=== PATIENT | male | born 1940 | race Two or more races ===

== ENCOUNTER → 2020-03-17 | Outpatient (CLI) | payer MEDICARE ==
[~2020-03-17] MED LIST: ATOR40TA78 PO; CELE200C PO; DAPA10TA PO; FINA5TAB4 PO; GLIP10TA24 PO; LISI40TA PO; METF10002 PO; OXYC-302 PO; SENN-25 PO; TAMS-11 PO; TAMS0.4C2 PO; TRAM50TA2 PO; VISIPAQUE 320 MG/ML, 150ML BOTTLE ONE; celexa PO; toujeo SC
== END | disposition home or self-care (01) ==
LOC: RAD 11:01
PROVIDERS: ATTEND Internal Medicine Cardiovascular Disease
DX: N28.1 Cyst of kidney, acquired (principal); N40.0 Benign prostatic hyperplasia without lower urinary tract symptoms; J43.9 Emphysema, unspecified; I70.0 Atherosclerosis of aorta; N32.89 Other specified disorders of bladder; I70.1 Atherosclerosis of renal artery
CPT/HCPCS: 71275; 74174; Q9967

== ENCOUNTER → 2020-05-03 | Outpatient (CLI) | payer MEDICARE, OTHER ==
[~2020-05-03] MED LIST changes: +ASPI81TA45 PO; +CLOP75TA PO; -VISIPAQUE 320 MG/ML, 150ML BOTTLE ONE
== END | disposition home or self-care (01) ==
LOC: CFH 10:20
PROVIDERS: ATTEND Internal Medicine Cardiovascular Disease
DX: I34.0 Nonrheumatic mitral (valve) insufficiency (principal); R06.02 Shortness of breath; I65.29 Occlusion and stenosis of unspecified carotid artery
CPT/HCPCS: 93306

== ENCOUNTER → 2020-11-07 | Outpatient (CLI) | payer MEDICARE, OTHER | END | disposition home or self-care (01) | LOC: CVU 09:30 | PROVIDERS: ATTEND Internal Medicine Cardiovascular Disease | DX: I65.23 Occlusion and stenosis of bilateral carotid arteries (principal); R42 Dizziness and giddiness; I73.9 Peripheral vascular disease, unspecified | CPT/HCPCS: 93880 ==

== ENCOUNTER → 2021-03-13 | Outpatient (CLI) | payer MEDICARE, OTHER ==
[~2021-03-13] MED LIST changes: -LISI40TA PO; +LISI40TA9 PO; -OXYC-302 PO; +OXYC1TAB14 PO
== END | disposition home or self-care (01) ==
LOC: CVU 09:31
PROVIDERS: ATTEND Internal Medicine Cardiovascular Disease
DX: I08.1 Rheumatic disorders of both mitral and tricuspid valves (principal); I50.30 Unspecified diastolic (congestive) heart failure
CPT/HCPCS: 93306

== ENCOUNTER 2021-05-11 19:51 | Inpatient (IN) | payer MEDICARE, OTHER ==
[~2021-05-11] VITALS: Ht 152.4 cm; Wt 57.4 kg
[2021-05-11] MEDS ORDERED: AMPICILLIN/SULBACTAM 3 GM in SODIUM CHLORIDE 0.9% 100 ML IV ONE (23:00)
[2021-05-11] MEDS ORDERED: ONDANSETRON 2MG/ML, 2ML IVPush ONE (23:00)
[2021-05-11] MEDS ORDERED: SODIUM CHLORIDE FLUSH 10ML SYR IVF ONE (23:00)
[2021-05-11] MEDS ORDERED: VANCOMYCIN PER PHARMACY MC ONE (23:00)
[2021-05-11] MEDS ORDERED: MORPHINE SULFATE 4 MG/ML, 1ML IVPush PRN (23:00)
[2021-05-11] MEDS ORDERED: SODIUM CHLORIDE 0.9% 1,000ML IVBOLUS ONE (23:00)
[2021-05-11] MEDS ORDERED: PHARMACOKINETIC CONSULTATION MC ONE (23:00)
[2021-05-11 23:18] LABS: BASOPHILS % (AUTO) 1 % (0-1); EOSINOPHILS % (AUTO) 5 % (1-7); LYMPHOCYTES % (AUTO) 14 % (22-44); MEAN CORPUSCULAR HEMOGLOBIN 31.1 pg (27.5-34.5); MEAN CORPUSCULAR HGB CONC 33.5 g/dL (33.2-36.2); MONOCYTES % (AUTO) 9 % (2-9); NEUTROPHILS % (AUTO) 72 % (42-75); PLATELET COUNT 309 x10^3/uL (130-400); RED BLOOD COUNT 3.68 x10^6/uL (4.38-5.82); RED CELL DISTRIBUTION WIDTH 15.3 % (9.4-14.8)
[2021-05-11 23:19] LABS: HCT (SEDRATE) 34.8 % (39.2-51.8)
[2021-05-11 23:29] LABS: ALANINE AMINOTRANSFERASE 34 U/L (12-78); CALCIUM 8.8 mg/dL (8.5-10.1); CHLORIDE 101 mmol/L (98-107); CREATININE 1.46 mg/dL (0.7-1.3)
[2021-05-11] MEDS ORDERED: VANCOMYCIN 1,600 MG in SODIUM CHLORIDE 0.9% 250 ML IV ONE (23:30)
[2021-05-11 23:32] LABS: ALBUMIN 3.3 g/dL (3.4-5.0); ALKALINE PHOSPHATASE 125 U/L (45-117); ANION GAP 11 mmol/L (5-15); BILIRUBIN,TOTAL 0.3 mg/dL (0.2-1.0)
--- NOTE | 2021-05-11 23:41 | NUR ---
PT REPORTS LAST NOVEMBER HAVING A BURN ON THAT MIDDLE FINGER. FAMILY REPORTS PT WAS SEEING PCP WHO WANTED HIM TO FOLLOW UP WITH THE [facility] WHO REFUSED TO SEE PT DUE TO SCAB ON FINGER TIP. PT THEN HAD WOUND HEALING OKAY UNTIL A WEEK PRIOR WHEN THE WOUN DWAS SIGNIFICANTLY REDDENED. THEN TODAY WHEN THE FAMILY SAW THAT THE FINGER TIP IS BLACKENED AND APPEARS TO BE NECROTIC TISSUE, PCP RECOMMENDED PT COME INTO ED TONIGHT. PT HAD HX OF DM. PT TO BE ADMITTED. NAD. Patient is resting comfortably in bed. Bed in lowest, rails engaged, call light on lap. Vital Signs within normal limits. WCTM.
[2021-05-12] MEDS ORDERED: ONDANSETRON 2MG/ML, 2ML IV PRN (00:30)
[2021-05-12] MEDS ORDERED: POLYETHYLENE GLYCOL 17 GM PACKET PO PRN (00:30)
[2021-05-12] MEDS ORDERED: MELATONIN 5 MG TABLET PO PRN (00:30)
[2021-05-12] MEDS ORDERED: PHARMACY MAY ADJ FOR RENAL FX MC SCH (00:30)
[2021-05-12] MEDS ORDERED: ACETAMINOPHEN 325 MG TABLET PO PRN (00:30)
[2021-05-12] MEDS ORDERED: VANCOMYCIN PER PHARMACY MC PRN (00:30)
[2021-05-12] MEDS ORDERED: HYDROmorphone 2 MG/ML, 1ML IV PRN (00:30)
[2021-05-12 01:38] VITALS: BP 145/59
[2021-05-12] MEDS: HYDROcodone/APAP 5/325 TABLET PO PRN ×3 (01:38→20:34)
[2021-05-12] MEDS ORDERED: PHARMACOKINETIC MONITORING MC PRN (02:00)
[2021-05-12] MEDS ORDERED: CEFEPIME 2 GM in DEXTROSE 5% 100 ML IV SCH (02:30)
[2021-05-12] MEDS: LACTATED RINGERS 1,000 ML IV SCH ×2 (02:49→11:19)
[2021-05-12] MEDS: INSULIN REGULAR 100 UNITS/ML, 3ML VIAL SQ-INSULIN SCH ×5 (03:03→20:18)
[2021-05-12 03:15] LABS: ANION GAP 8 mmol/L (5-15); CALCIUM 7.8 mg/dL (8.5-10.1); CHLORIDE 107 mmol/L (98-107); CREATININE 1.31 mg/dL (0.7-1.3)
[2021-05-12 03:21] LABS: BASOPHILS % (AUTO) 1 % (0-1); EOSINOPHILS % (AUTO) 6 % (1-7); LYMPHOCYTES % (AUTO) 14 % (22-44); MEAN CORPUSCULAR HEMOGLOBIN 31.1 pg (27.5-34.5); MEAN CORPUSCULAR HGB CONC 33.6 g/dL (33.2-36.2); MONOCYTES % (AUTO) 9 % (2-9); NEUTROPHILS % (AUTO) 70 % (42-75); PLATELET COUNT 264 x10^3/uL (130-400); RED BLOOD COUNT 3.16 x10^6/uL (4.38-5.82); RED CELL DISTRIBUTION WIDTH 14.9 % (9.4-14.8)
[2021-05-12 07:06] VITALS: BP 131/66
[2021-05-12 12:03] VITALS: BP 117/68
[2021-05-12] MEDS: CEFEPIME 2 GM in DEXTROSE 5% 100 ML IV SCH (16:34)
[2021-05-12] MEDS: VANCOMYCIN 1,200 MG in SODIUM CHLORIDE 0.9% 250 ML IV SCH (18:18)
[2021-05-12 19:33] VITALS: BP 103/63
[2021-05-13] MEDS: LACTATED RINGERS 1,000 ML IV SCH (01:09)
[2021-05-13 01:10] VITALS: BP 126/62
[2021-05-13] MEDS: CEFEPIME 2 GM in DEXTROSE 5% 100 ML IV SCH ×2 (03:57→16:20)
[2021-05-13 06:20] LABS: BASOPHILS % (AUTO) 1 % (0-1); EOSINOPHILS % (AUTO) 5 % (1-7); LYMPHOCYTES % (AUTO) 13 % (22-44); MEAN CORPUSCULAR HEMOGLOBIN 30.8 pg (27.5-34.5); MEAN CORPUSCULAR HGB CONC 33.7 g/dL (33.2-36.2); MEAN PLATELET VOLUME 7.9 fL (7.4-10.4); MONOCYTES % (AUTO) 9 % (2-9); NEUTROPHILS % (AUTO) 72 % (42-75); PLATELET COUNT 266 x10^3/uL (130-400); RED BLOOD COUNT 3.15 x10^6/uL (4.38-5.82); RED CELL DISTRIBUTION WIDTH 15.2 % (9.4-14.8)
[2021-05-13 06:30] LABS: ANION GAP 6 mmol/L (5-15); CALCIUM 8.6 mg/dL (8.5-10.1); CHLORIDE 111 mmol/L (98-107); CREATININE 0.97 mg/dL (0.7-1.3)
[2021-05-13 07:14] VITALS: BP 124/59
[2021-05-13] MEDS: INSULIN REGULAR 100 UNITS/ML, 3ML VIAL SQ-INSULIN SCH ×4 (07:15→20:22)
[2021-05-13] MEDS: HYDROcodone/APAP 5/325 TABLET PO PRN ×2 (08:28→20:40)
[2021-05-13] MEDS: FINASTERIDE 5 MG TABLET PO SCH (11:30)
[2021-05-13] MEDS: VANCOMYCIN 1,200 MG in SODIUM CHLORIDE 0.9% 250 ML IV SCH (11:42)
[2021-05-13] MEDS: TAMSULOSIN 0.4 MG CAP.ER.24H PO SCH (11:42)
[2021-05-13 12:58] VITALS: BP 128/68
[2021-05-13 19:30] VITALS: BP 117/60
[2021-05-13] MEDS: ATORVASTATIN 40 MG TABLET PO SCH (20:40)
[2021-05-14] VITALS (12 sets, daily range): BP systolic 105–160; BP diastolic 59–79
[2021-05-14] MEDS: CEFEPIME 2 GM in DEXTROSE 5% 100 ML IV SCH ×3 (04:18→20:30)
[2021-05-14] MEDS: INSULIN REGULAR 100 UNITS/ML, 3ML VIAL SQ-INSULIN SCH ×4 (07:00→20:30)
[2021-05-14] MEDS: morphine SULFATE 10 MG/ML, 1ML IVPush PRN ×2 (11:24→12:08)
[2021-05-14] MEDS: VANCOMYCIN 1,200 MG in SODIUM CHLORIDE 0.9% 250 ML IV SCH (12:15)
[2021-05-14] MEDS ORDERED: FENTANYL PF 250 MCG/5ML ONE (15:10)
[2021-05-14] MEDS ORDERED: MIDAZOLAM 1 MG/ML, 2ML ONE (15:10)
[2021-05-14] MEDS ORDERED: SUCCINYLCHOLINE 20 MG/ML, 10ML ONE (15:18)
[2021-05-14] MEDS ORDERED: ROCURONIUM 10 MG/ML,10ML ONE (15:18)
[2021-05-14] MEDS ORDERED: CEFAZOLIN 1,000 MG ONE (15:18)
[2021-05-14] MEDS ORDERED: DEXAMETHASONE 4 MG/ML, 1ML ONE (15:18)
[2021-05-14] MEDS ORDERED: PROPOFOL 10 MG/ML, 20ML ONE (15:18)
[2021-05-14] MEDS ORDERED: ONDANSETRON 2MG/ML, 2ML ONE (15:18)
[2021-05-14] MEDS ORDERED: hydrALAzine 20 MG/ML, 1ML IV PRN ×2 (16:00)
[2021-05-14] MEDS ORDERED: MEPERIDINE/PF 25MG/0.5ML IVPush PRN ×2 (16:00)
[2021-05-14] MEDS ORDERED: KETOROLAC 30 MG/1 ML IV PRN ×2 (16:00)
[2021-05-14] MEDS ORDERED: OXYcodone 5 MG/5 ML ORAL.SOL UDC PO PRN (16:00)
[2021-05-14] MEDS ORDERED: PROMETHAZINE 25 MG/ML, 1ML IV PRN ×2 (16:00)
[2021-05-14] MEDS ORDERED: HYDROmorphone 1 MG/ML, 1ML INJ IV PRN ×2 (16:00)
[2021-05-14] MEDS ORDERED: ONDANSETRON 2MG/ML, 2ML IVPush PRN ×2 (16:00)
[2021-05-14] MEDS: ASPIRIN 81 MG TABLET EC PO SCH (16:00)
[2021-05-14] MEDS ORDERED: METOCLOPRAMIDE 5 MG/ML, 2ML IV PRN ×2 (16:00)
[2021-05-14] MEDS ORDERED: DIAZEPAM 5 MG/ML, 2ML IV PRN ×4 (16:00)
[2021-05-14] MEDS ORDERED: LABETALOL 5MG/ML, 20ML IV PRN ×2 (16:00)
[2021-05-14] MEDS ORDERED: ALBUTEROL SULFATE 2.5 MG/3 ML NPPB PRN ×2 (16:00)
[2021-05-14] MEDS ORDERED: FENTANYL PF 100 MCG/2ML IV PRN (16:00)
[2021-05-14] MEDS: FENTANYL PF 100 MCG/2ML IV PRN ×3 (16:30→16:40)
[2021-05-14] MEDS: OXYcodone 5 MG/5 ML ORAL.SOL UDC PO PRN ×2 (16:30→16:44)
[2021-05-14] MEDS ORDERED: OXYcodone 5 MG/5 ML ORAL.SOL UDC ONE ×2 (16:31→16:41)
[2021-05-14] MEDS ORDERED: FENTANYL PF 100 MCG/2ML ONE (16:31)
[2021-05-14] MEDS: FINASTERIDE 5 MG TABLET PO SCH (18:24)
[2021-05-14] MEDS: TAMSULOSIN 0.4 MG CAP.ER.24H PO SCH (18:24)
[2021-05-14] MEDS: ATORVASTATIN 40 MG TABLET PO SCH (20:29)
[2021-05-14] MEDS: HYDROcodone/APAP 5/325 TABLET PO PRN (23:46)
[2021-05-15 03:06] VITALS: BP 110/54
[2021-05-15] MEDS: morphine SULFATE 10 MG/ML, 1ML IVPush PRN (04:22)
[2021-05-15] MEDS: CEFEPIME 2 GM in DEXTROSE 5% 100 ML IV SCH ×2 (04:23→15:53)
[2021-05-15 05:50] LABS: BASOPHILS % (AUTO) 1 % (0-1); EOSINOPHILS % (AUTO) 3 % (1-7); LYMPHOCYTES % (AUTO) 13 % (22-44); MEAN CORPUSCULAR HEMOGLOBIN 30.7 pg (27.5-34.5); MEAN CORPUSCULAR HGB CONC 33.2 g/dL (33.2-36.2); MONOCYTES % (AUTO) 9 % (2-9); NEUTROPHILS % (AUTO) 74 % (42-75); PLATELET COUNT 289 x10^3/uL (130-400); RED BLOOD COUNT 3.28 x10^6/uL (4.38-5.82)
[2021-05-15 05:53] LABS: ANION GAP 5 mmol/L (5-15); CALCIUM 8.5 mg/dL (8.5-10.1); CHLORIDE 108 mmol/L (98-107); CREATININE 0.98 mg/dL (0.7-1.3)
[2021-05-15] MEDS: INSULIN REGULAR 100 UNITS/ML, 3ML VIAL SQ-INSULIN SCH ×3 (07:00→16:16)
[2021-05-15 07:26] VITALS: BP 117/59
[2021-05-15] MEDS: FINASTERIDE 5 MG TABLET PO SCH (08:02)
[2021-05-15] MEDS: ASPIRIN 81 MG TABLET EC PO SCH (08:02)
[2021-05-15] MEDS: TAMSULOSIN 0.4 MG CAP.ER.24H PO SCH (08:02)
[2021-05-15] MEDS: HYDROcodone/APAP 5/325 TABLET PO PRN ×2 (08:03→14:27)
[2021-05-15] MEDS: VANCOMYCIN 1,200 MG in SODIUM CHLORIDE 0.9% 250 ML IV SCH (11:50)
[2021-05-15 13:11] VITALS: BP 150/69
[2021-05-15] MEDS ORDERED: OXYC5TAB2 PO (18:23)
[2021-05-15] MEDS ORDERED: AMOX1TAB61 PO (18:24)
== END 2021-05-15 18:53 | disposition home or self-care (01) | DRG 256 ==
LOC: ED 23:55 → EDIP 05-12 00:29 → 4NE 05-12 00:58 → 3N 05-12 11:39
PROVIDERS: ADMIT Internal Medicine; ATTEND Internal Medicine
PROC: 0X6J0ZC Detachment at Right Hand, Partial 3rd Ray, Open Approach (ICD-10-PCS; principal; 2021-05-14 13:00)
DX: E11.52 Type 2 diabetes mellitus with diabetic peripheral angiopathy with gangrene (principal); M86.141 Other acute osteomyelitis, right hand; L03.113 Cellulitis of right upper limb; I50.32 Chronic diastolic (congestive) heart failure; N17.9 Acute kidney failure, unspecified; I96 Gangrene, not elsewhere classified; I11.0 Hypertensive heart disease with heart failure; D64.9 Anemia, unspecified; E78.5 Hyperlipidemia, unspecified; E87.5 Hyperkalemia; I25.10 Atherosclerotic heart disease of native coronary artery without angina pectoris; I35.0 Nonrheumatic aortic (valve) stenosis; L03.011 Cellulitis of right finger; N40.0 Benign prostatic hyperplasia without lower urinary tract symptoms; Z79.4 Long term (current) use of insulin; Z83.3 Family history of diabetes mellitus; Z85.46 Personal history of malignant neoplasm of prostate; Z87.891 Personal history of nicotine dependence; Z92.3 Personal history of irradiation; Z95.2 Presence of prosthetic heart valve; R70.0 Elevated erythrocyte sedimentation rate; Z20.822 Contact with and (suspected) exposure to COVID-19; E11.69 Type 2 diabetes mellitus with other specified complication
CPT/HCPCS: 36415; 80048; 80053; 80202; 82962; 83605; 84145; 85025; 85651; 86140; 87040; 87635; 88305; 93931; 99291; G0378; J0295; J0690; J1100; J1815; J2250; J2405; J2704; J3010; J3370; J0330; J2270; J7030; J7050; J7120